=== PATIENT | female | born 1990 | race African-American/Black ===

== ENCOUNTER 2018-01-31 22:51 | Emergency (ER) ==
[2018-01-31 23:01] VITALS: BP 118/76; TEMP 97.1; BMI 19.3
[2018-01-31] MEDS ORDERED: AUGMENTIN 500-125 MG TAB PO STA (23:18)
[2018-01-31] MEDS ORDERED: PREDNISONE PO STA (23:18)
--- NOTE | 2018-01-31 23:21 | ED.PDOC ---
General ED Provider: Dr. ADOLFO HOLBROOK Chief Complaint: Cough Stated Complaint: Been coughing, sinus drainage, left side head hurting. no fever or chills Time Seen by Physician: 23:19 Mode of Arrival: Walk-In Information Source: Patient Nursing and Triage Documentation Reviewed and Agree: Yes Reviewed sepsis parameters & appropriate labs ordered?: No System Inflammatory Response Syndrome: Not Applicable Sepsis Protocol: For patient's 13 years and over: Temp is 96.8 and below OR 101 and greater Pulse >90 BPM Resp >20/minute Acutely Altered Mental Status Are patient's symptoms suggestive of a new infection, such as: -Pneumonia -Skin, Soft Tissue -Endocarditis -UTI -Bone, Joint Infection -Implantable Device -Acute Abdominal Infection -Wound Infection -Meningitis -Blood Stream Catheter Infection -Unknown Respiratory Complaint Exam - Respiratory Complaint/Exam Symptoms Are: Still present Timing: Constant Initial Severity: Mild Current Severity: Mild Location: Chest Character: Reports: Productive cough Aggravating: Reports: Allergens, Exertion, URI Alleviating: Reports: None Associated Signs and Symptoms: Reports: URI, Nasal congestion, Hoarseness, Sinus discomfort. Denies: Rapid breathing, Dyspnea, Fever, Chills, Chest pain, Pleuritic chest pain, Wheezing, Hemoptysis, Dizziness, Calf pain, Calf swelling , Edema, Vomiting, Sore throat, Weight loss, Decreased oral intake, Increased thirst, Increased appetite, Increased urination Related History: Reports: Similar episode History of Healthcare-Acquired Pneumonia: No Related Surgical History: Reports: None Pulmonary Embolism Risk Factors: None Cardiac Risk Factors: Reports: None Pseudomonas Risk Factors: Reports: None Tuberculosis Risk Factors: Reports: None Status Asthmaticus Risk Factors: Reports: None Home Oxygen Use: No Recent Stress Test: No Recent Echo/LV Function: No Current Antibiotic Use: No Current Asthma Medication Use: No Respiratory Distress: None Inadequate Respiratory Effort: No Dysphagia Present: No Stridor Present: No JVD Present: No Accessory Muscle Use: No Retractions: Not Present Diminished Breath Sounds: No Sinus Tenderness: None Grunting Respirations: No Kussmaul Respirations: No Differential Diagnoses: URI Review of Systems - Review Of Systems Constitutional: Reports: No symptoms Eyes: Reports: No symptoms Ears, Nose, Mouth, Throat: Reports: No symptoms, Nose discharge Respiratory: Reports: Cough Cardiac: Reports: No symptoms GI: Reports: No symptoms : Reports: No symptoms Musculoskeletal: Reports: No symptoms Skin: Reports: No symptoms Neurological: Reports: No symptoms Endocrine: Reports: No symptoms Hematologic/Lymphatic: Reports: No symptoms All Other Systems: Reviewed and Negative Past Medical History - Past Medical History Previously Healthy: Yes 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) Cardiovascular: Reports: None Respiratory: Reports: None Hematological: Reports: None Gastrointestinal: Reports: None Genitourinary: Reports: None Neuro/Psych: Reports: None Musculoskeletal: Reports: None Cancer: Reports: None Last Menstrual Period: never had periods - Surgical History General Surgical History: Reports: None - Family History Family History: Reports: None - Social History Smoking Status: Current every day smoker, Light tobacco smoker Hx Substance Use: No Alcohol Screening: Occasionally - Immunizations Tetanus Shot up to Date: Yes Physical Exam - Physical Exam Appearance: Well-appearing, No pain distress, Well-nourished Eyes: FRANCINE, EOMI, Conjunctiva clear ENT: Ears normal, Nose normal, Oropharynx normal Respiratory: Airway patent, Breath sounds clear, Breath sounds equal, Respirations nonlabored Cardiovascular: RRR, Pulses normal, No rub, No murmur GI/: Soft, Nontender, No masses, Bowel sounds normal, No Organomegaly Musculoskeletal: Normal strength, ROM intact, No edema, No calf tenderness Skin: Warm, Dry, Normal color Neurological: Sensation intact, Motor intact, Reflexes intact, Cranial nerves intact, Alert, Oriented Psychiatric: Affect appropriate, Mood appropriate Critical Care Note - Critical Care Note Total Time (mins): 30 Course - Course Orders, Labs, Meds: Orders Category Date Time Status Amoxicillin/Potassium Clav [Augmentin 500-125 mg Tab] MEDS 01/31/18 23:18 Stat 1 tab PO ONCE STA Prednisone MEDS 01/31/18 23:18 Stat 10 mg PO ONCE STA Vital Signs: Temp Pulse Resp BP Pulse Ox 01/31/18 22:53 97.1 F L 65 20 118/76 99 Departure - Departure Time of Disposition: 23:22 Disposition: HOME SELF-CARE Discharge Problem: URTI (acute upper respiratory infection) Instructions: Upper Respiratory Infection (ED) Condition: Stable Pt referred to PMD for follow-up: Yes IPMP verified?: No Additional Instructions: Take medication with food, iNCREASE HYDRATION F/U [facility] IN 3-4 DAYS Prescriptions: Amoxicillin/Potassium Clav [Augmentin 500-125 mg Tab] 1 tab PO Q12HR #14 tablet Prednisone 10 mg PO BIDWM #14 tablet Allergies/Adverse Reactions: Allergies No Known Allergies Allergy (Unverified 01/31/18 23:00) Home Medications: Ambulatory Orders Amoxicillin/Potassium Clav [Augmentin 500-125 mg Tab] 1 tab PO Q12HR #14 tablet 01/31/18 Prednisone 10 mg PO BIDWM #14 tablet 01/31/18 Disposition Discussed With: Patient
== END 2018-01-31 23:45 | disposition home or self-care (01) ==
LOC: ED 22:51
DX: J06.9 Acute upper respiratory infection, unspecified (principal); F17.210 Nicotine dependence, cigarettes, uncomplicated
CPT/HCPCS: 99282

== ENCOUNTER 2018-10-27 20:49 | Emergency (ER) ==
[2018-10-27 20:57] VITALS: BP 111/66; BMI 20.9
[2018-10-27] MEDS ORDERED: DUONEB NEB STA (21:08)
[2018-10-27] MEDS ORDERED: LIDOCAINE HCL 1% SDV IM STA (21:28)
[2018-10-27] MEDS ORDERED: ROCEPHIN IM STA (21:28)
--- NOTE | 2018-10-27 21:29 | ED.PDOC ---
General ED Provider: Dr. MALLY MONTANO MD Chief Complaint: Cough Stated Complaint: sore throat Time Seen by Physician: 21:20 Mode of Arrival: Walk-In Information Source: Patient Exam Limitations: No limitations Nursing and Triage Documentation Reviewed and Agree: Yes Does patient meet sepsis criteria?: No If yes, has appropriate treatment been initiated?: Yes System Inflammatory Response Syndrome: Temp 101F or Greater Sepsis Protocol: For patient's 13 years and over: Temp is 96.8 and below OR 101 and greater Pulse >90 BPM Resp >20/minute Acutely Altered Mental Status Are patient's symptoms suggestive of a new infection, such as: -Pneumonia -Skin, Soft Tissue -Endocarditis -UTI -Bone, Joint Infection -Implantable Device -Acute Abdominal Infection -Wound Infection -Meningitis -Blood Stream Catheter Infection -Unknown Review of Systems - Review Of Systems Constitutional: Reports: Fever Eyes: Reports: No symptoms Ears, Nose, Mouth, Throat: Reports: Throat pain Respiratory: Reports: Cough Cardiac: Reports: No symptoms GI: Reports: No symptoms : Reports: No symptoms Musculoskeletal: Reports: No symptoms Skin: Reports: No symptoms Neurological: Reports: No symptoms Endocrine: Reports: No symptoms Hematologic/Lymphatic: Reports: No symptoms All Other Systems: Reviewed and Negative Past Medical History - Past Medical History Previously Healthy: Yes 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) Cardiovascular: Reports: None Respiratory: Reports: None Hematological: Reports: None Gastrointestinal: Reports: None Genitourinary: Reports: None Neuro/Psych: Reports: None Musculoskeletal: Reports: None Cancer: Reports: None 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 - Surgical History General Surgical History: Reports: None - Family History Family History: Reports: None - Social History Smoking Status: Current every day smoker, Light tobacco smoker Hx Substance Use: Yes Alcohol Screening: Occasionally - Immunizations Tetanus Shot up to Date: Yes Physical Exam - Physical Exam Appearance: Ill-appearing, Thin Ill-appearing: Mild Pain Distress: Mild Eyes: FRANCINE, EOMI, Conjunctiva clear ENT: Ears normal Neck: Supple Respiratory: Airway patent, Breath sounds clear, Breath sounds equal, Respirations nonlabored Cardiovascular: RRR, Pulses normal, No rub, No murmur GI/: Soft Musculoskeletal: Normal strength, ROM intact, No edema, No calf tenderness Skin: Warm, Dry, Normal color Neurological: Sensation intact, Motor intact, Reflexes intact, Cranial nerves intact, Alert, Oriented Psychiatric: Affect appropriate, Mood appropriate Critical Care Note - Critical Care Note Total Time (mins): 0 Course - Course Orders, Labs, Meds: Orders Category Date Time Status NEBULIZER TREATMENT Stat CARDIO 10/27/18 21:08 Ordered BLOOD CULTURE (ED ONLY) Stat LAB 10/27/18 21:07 Ordered CBC W/ AUTO DIFF Stat LAB 10/27/18 21:07 Ordered COMPREHENSIVE METABOLIC PANEL Stat LAB 10/27/18 21:07 Ordered FLU A/B MOLECULAR Stat LAB 10/27/18 21:12 Ordered LACTIC ACID Stat LAB 10/27/18 21:07 Ordered MOLECULAR GROUP A STREP Stat LAB 10/27/18 21:12 Ordered PROCALCITONIN Stat LAB 10/27/18 21:07 Ordered SERUM Stat LAB 10/27/18 Ordered URINALYSIS C & S IF INDICATED Stat LAB 10/27/18 21:19 Ordered Ipratropium/Albuterol Neb [Duoneb] MEDS 10/27/18 21:08 Discontinued 1 vial NEB ONCE STA CT CHEST W/O CONTRAST Stat RADS 10/27/18 21:07 Ordered Medications Discontinued Medications Generic Name Dose Route Start Last Admin Trade Name Freq PRN Reason Stop Dose Admin Albuterol/Ipratropium 1 vial 10/27/18 21:08 Duoneb NEB 10/27/18 21:09 ONCE STA Vital Signs: Temp Pulse Resp BP Pulse Ox 10/27/18 20:51 104 F H 100 H 20 111/66 98 Departure - Departure Time of Disposition: 21:35 Disposition: HOME SELF-CARE Discharge Problem: Pharyngitis due to Streptococcus species Condition: Good Pt referred to PMD for follow-up: Yes IPMP verified?: No Prescriptions: Sulfamethoxazole/Trimethoprim [Bactrim Ds Tablet] 1 each PO BID 7 Days #14 tablet NS Allergies/Adverse Reactions: Allergies No Known Allergies Allergy (Verified 10/27/18 20:57) Home Medications: Ambulatory Orders Sulfamethoxazole/Trimethoprim [Bactrim Ds Tablet] 1 each PO BID 7 Days #14 tablet NS 10/27/18
--- NOTE | 2018-10-27 22:36 | CT ---
Exam: CT of the chest without contrast History: Cough and fever Technique: [address] of the chest without intravascular contrast FINDINGS: The lung windows show no pulmonary parenchymal abnormalities. Normal heart, great vessels and pericardium by noncontrast CT. No pathologic lymph node enlargement or abundance of mediastinum . No acute findings of the chest wall soft tissues or bony thorax. No acute findings of the upper a bdomen. Numerous lobular splenules. Impression: No acute findings of the chest.
[2018-10-27] MEDS ORDERED: PREDNISONE PO STA (22:55)
[2018-10-27 23:28] VITALS: TEMP 103.9
== END 2018-10-27 23:28 | disposition home or self-care (01) ==
LOC: ED 20:49
DX: J02.0 Streptococcal pharyngitis (principal); F17.210 Nicotine dependence, cigarettes, uncomplicated
CPT/HCPCS: 36415; 80053; 81001; 83605; 84145; 84703; 85025; 87040; 87086; 87502; 87651; 94640; 96372; 99283